=== PATIENT | female | born 1970 | race Caucasian/White ===

== ENCOUNTER 2019-12-02 10:51 | Inpatient (IN) | payer OTHER ==
[~2019-12-02] VITALS: Ht 170.1 cm; Wt 122.5 kg
[2019-12-02 11:02] VITALS: BP 169/79
[2019-12-02 12:02] LABS: HEMATOCRIT 35.5 % (37.0-47.0); HEMOGLOBIN 10.8 g/dl (12.0-16.0); MEAN CELL VOLUME 85.5 fl (81.0-99.0); MEAN CORPUSCULAR HGB CONC 30.4 g/dl (33.0-37.0); MEAN PLATELET VOLUME 9.4 fl (9.6-12.3); PLATELET COUNT AUTOMATED 155 10*3/uL (130-400); RED BLOOD COUNT 4.15 10*6/uL (4.10-5.10); RED CELL DISTRI WIDTH 15.4 % (0-14.5); WHITE BLOOD COUNT 3.5 10*3/uL (4.8-10.8)
[2019-12-02 12:14] LABS: ACT PARTIAL THROMBO TIME 25.1 SECONDS (20.0-32.1)
[2019-12-02 12:18] LABS: ALBUMIN 3.2 gm/dl (3.1-4.5); ALKALINE PHOSPHATASE 118 U/L (45-117); BUN 8 mg/dl (7-24); CHLORIDE 108 mmol/L (98-107); POTASSIUM 3.9 mmol/L (3.5-5.1); SGOT/AST 44 IU/L (3-35); SGPT/ALT 64 U/L (12-78); SODIUM 140 mmol/L (136-145); TOTAL PROTEIN 7.1 gm/dL (6.4-8.2)
[2019-12-02 12:31] LABS: ATYPICAL LYMPHS 16 % (0-0); PLATELET SUFFICIENCY NORMAL (NORMAL); POLYCHROMASIA SLIGHT; TOTAL CELLS COUNTED 100 #CELLS
[2019-12-02 12:33] LABS: TROPONIN I < 0.015 ng/ml (<0.045)
[2019-12-02 13:40] VITALS: BP 138/88
--- NOTE | 2019-12-02 13:40 | NUR ---
A 49, admitted to 4E, under the services of YOCASTA Cosme DO with a diagnosis of CHEST PAIN. Chief complaint is L SIDE PAIN, HURTS DEEP BREATH,AND ARMS ABOVE HEAD. Patient arrived via stretcher from ER. Monitor applied. Initial assessment completed. Vital signs taken and recorded. YOCASTA COSME DO notified of admission to the unit. Orders received. See assessment for past medical history, medications and allergies. Patient and/or family oriented to unit. [facility] visitation policy reviewed. Clothing/patient valuable form completed. HERIBERTO YAÑEZ
[2019-12-02 13:59] LABS: BILIRUBIN NEGATIVE (NEGATIVE); BLOOD NEGATIVE (NEGATIVE); CLARITY SL CLOUDY (CLEAR); COLOR YELLOW (YELLOW); GLUCOSE NEGATIVE (NEGATIVE); KETONE NEGATIVE (NEGATIVE); SPECIFIC GRAVITY 1.005 (1.005-1.030)
[2019-12-02 14:00] LABS: BACTERIA 3+; LEUKO ESTERASE 2+ (NEGATIVE); NITRITE NEGATIVE (NEGATIVE); UROBILINOGEN 0.2 E.U./dl (0.2-1.0); WBC 21-30 wbc/hpf (0-5)
[2019-12-02] MEDS ORDERED: PRILOSEC20 M1 PO (14:25)
[2019-12-02] MEDS ORDERED: BISOPROLOL FUMA10 MG PO (14:25)
[2019-12-02] MEDS ORDERED: CYCLOBENZAPRINE10 MG PO (14:26)
[2019-12-02] MEDS ORDERED: PRAVASTATIN SOD10 MG PO (14:26)
[2019-12-02] MEDS ORDERED: XANAX0.5 MG PO (14:27)
[2019-12-02] MEDS ORDERED: HYDROCODONE-AC1 EAC1 PO (14:28)
[2019-12-02 16:00] VITALS: BP 136/67
[2019-12-02 20:00] VITALS: BP 149/69
[2019-12-03] VITALS: BP 160/78
--- NOTE | 2019-12-03 | NUR ---
PATIENT NOT IN RTOOM. MONITOR REMOVED AND LAYING ON BED WITH GOWN. CHECKED THE LOBBY. BOX MAKER AND DR. HARRISON AWARE
--- NOTE | 2019-12-03 00:30 | NUR ---
SPOKE WITH DR. BOSS. NOTIFIED PATIENT LEFT AMA. CALL [facility] TO SEE IF HEPLOCK WAS REMOVED PRIOR TO DISCHARGE. MESSAGE LEFT ON ANSWERING MACHINE.
== END 2019-12-03 00:30 | disposition left against medical advice (07) | DRG 206 ==
LOC: ED 10:51 → 4E 13:10 → EDHOLD 13:10 → 4E 13:27
PROVIDERS: Emergency Medicine; Physician Assistant; ADMIT Internal Medicine
DX: M94.0 Chondrocostal junction syndrome [Tietze] (principal); E44.0 Moderate protein-calorie malnutrition; Z68.41 Body mass index [BMI] 40.0-44.9, adult; R10.12 Left upper quadrant pain; K59.00 Constipation, unspecified; I10 Essential (primary) hypertension; E78.00 Pure hypercholesterolemia, unspecified; K21.9 Gastro-esophageal reflux disease without esophagitis; D50.9 Iron deficiency anemia, unspecified; M19.90 Unspecified osteoarthritis, unspecified site; Z53.29 Procedure and treatment not carried out because of patient's decision for other reasons; Z79.891 Long term (current) use of opiate analgesic; Z90.49 Acquired absence of other specified parts of digestive tract; Z80.0 Family history of malignant neoplasm of digestive organs; Z79.899 Other long term (current) drug therapy